=== PATIENT | female | born 1970 | race Caucasian/White ===

== ENCOUNTER 2016-05-17 05:42 | Day surgery (SDC) | payer OTHER ==
[~2016-05-17] VITALS: Ht 165.1 cm; Wt 61.7 kg
[2016-05-17 06:48] VITALS: Ht 165.1 cm; Wt 61.7 kg
[2016-05-17] MEDS ORDERED: OMEP40CA6 PO (06:53)
[2016-05-17] MEDS ORDERED: FENTAnyl 50 MCG/ML VIAL ONE (07:36)
[2016-05-17] MEDS ORDERED: MIDAZOLAM 1 MG/ML 2 ML INJ ONE ×2 (07:37)
[2016-05-17 08:10] VITALS: BP 105/66; PULSE 74; RESP 16
--- NOTE | 2016-05-17 10:19 | GILP ---
DATE OF PROCEDURE: NAME OF PROCEDURES: Esophagogastroduodenoscopy and biopsy. SURGEON: Marlene Casas MD PREOPERATIVE DIAGNOSES: 1. Abdominal pain. 2. Chronic heartburn. POSTOPERATIVE DIAGNOSES: 1. Gastroesophageal reflux disease. 2. Gastritis. 3. Gastric mucosal biopsies were taken for H. pylori test and it was positive. INDICATION FOR THE PROCEDURE: Ms. Joyce Morgan is a 45-year-old female patient who had up per abdominal pain and chronic heartburn, not responding to therapy. The patient was scheduled for endoscopic examination for further evaluation. The procedure and possible complications were well explained to the patient. The patient understood and consented to the procedure. DESCRIPTION OF PROCEDURE: Under the influence of fentanyl and Versed, the gastroscope was carefully introduced into the esophagus and under direct vision, it was advanced to the stomach and through t he pylorus into the duodenal bulb and descending duodenum. FINDINGS: ESOPHAGUS: The patient had gastroesophageal reflux disease. STOMACH: She had gastritis with erosions. Gastric mucosal biopsies were taken for H. pylori test a nd it was positive. DUODENUM: Normal. The patient tolerated the procedure very well and there was no complication from the procedure. At the end of the procedure, she was awake with stable vital signs and she was discharged home to the [facility] of her family. IMPRESSION: 1. Gastroesophageal reflux disease. 2. Gastritis and biopsy was positive for Helicobacter pylori infection. PLAN: 1. Continue omeprazole. 2. Zantac 300 mg p.o. at bedtime. 3. Doxycycline 100 mg p.o. b.i.d. for 14 days. 4. Flagyl 500 mg p.o. b.i.d. for 14 days. 5. Pepto-Bismol 2 tablets p.o. q.i.d. for 14 days for H. pylori infection. Dictated By: MARLENE RODRIGUEZ/SHE Conf#: [id number] DID#: [id number]
== END 2016-05-17 08:54 | disposition home or self-care (01) ==
LOC: GIL 05:42
PROVIDERS: ATTEND Internal Medicine Gastroenterology
DX: K21.9 Gastro-esophageal reflux disease without esophagitis (principal); B96.81 Helicobacter pylori [H. pylori] as the cause of diseases classified elsewhere; K29.70 Gastritis, unspecified, without bleeding
CPT/HCPCS: 43239; 87081; J2250; J3010; Z7610